=== PATIENT | male | born 1950 | race Caucasian/White ===

== ENCOUNTER 2018-01-04 10:06 | Emergency (ER) | payer MEDICARE ==
[~2018-01-04] VITALS: Ht 172.7 cm; Wt 109.1 kg
[2018-01-04 10:09] VITALS: Ht 172.7 cm; Wt 109.1 kg
[2018-01-04] MEDS ORDERED: LISINOPRIL10 MG PO (10:10)
[2018-01-04] MEDS ORDERED: UNITHROID75 MCG PO (10:10)
[2018-01-04 10:50] LABS: BASOPHILS 0.2 % (0-2); EOSINOPHILS 1.6 % (0-7); HEMATOCRIT 45.6 % (42.0-54.0); HEMOGLOBIN 16.1 g/dL (13.5-17.5); IMMATURE GRANULOCYTES 0.2 % (0-5); LYMPHOCYTES 18.1 % (15-50); MCH 31.7 pg (26.0-34.0); MCHC 35.3 g/dL (31.0-37.0); MCV 89.8 fL (80.0-100.0); MEAN PLATELET VOLUME 8.8 fL (7.4-10.4); MONOCYTES 6.4 % (2-11); NEUTROPHILS 73.5 % (40-80); PLATELET COUNT 210 10x3/uL (130-400); RBC 5.08 10x6/uL (4.20-6.10); RDW 13.1 % (11.5-14.5); WBC 5.1 10x3/uL (4.8-10.8)
[2018-01-04 11:13] LABS: ALBUMIN 4.4 g/dL (3.4-5.0); ALKALINE PHOSPHATASE 47 U/L (46-116); ALT (SGPT) 32 U/L (10-68); BILIRUBIN - TOTAL 1.08 mg/dL (0.2-1.3); CALC OSMOLALITY 274 mosm/kg (275-300); CALCIUM 9.4 mg/dL (8.5-10.1); CHLORIDE - SERUM 101 mmol/L (98-107); GLUCOSE 119 mg/dL (74-106); POTASSIUM - SERUM 4.1 mmol/L (3.5-5.1); PROTEIN - SERUM 7.5 g/dL (6.4-8.2); SODIUM 137 mmol/L (136-145); UREA NITROGEN 12 mg/dL (7-18); eGFR NON AFRICAN AMERICAN 79 mL/min (90-120)
[2018-01-04 11:21] LABS: THYROID STIMULATING HORMONE 0.65 uIU/mL (0.36-3.74); TROPONIN-I < 0.017 ng/mL (0.000-0.060)
[2018-01-04 12:03] VITALS: BP 111/70
== END 2018-01-04 12:03 | disposition home or self-care (01) ==
LOC: D.ER 10:06
PROVIDERS: Family Medicine
DX: F41.0 Panic disorder [episodic paroxysmal anxiety] (principal); E05.00 Thyrotoxicosis with diffuse goiter without thyrotoxic crisis or storm; I10 Essential (primary) hypertension; R51 Headache

== ENCOUNTER → 2018-08-16 07:38 | Outpatient (CLI) | payer MEDICARE, OTHER ==
[2018-01-04 10:09] VITALS: BMI 36.5
[~2018-08-16 07:38] MED LIST: LISINOPRIL10 MG PO; UNITHROID75 MCG PO
== END | disposition home or self-care (01) ==
LOC: D.US 08-15 08:00
DX: R10.13 Epigastric pain (principal)

== ENCOUNTER → 2019-03-07 06:55 | Outpatient (CLI) | payer MEDICARE, OTHER ==
[2018-01-04 10:09] VITALS: BMI 36.5
[2019-03-07 07:29] LABS: BILIRUBIN - DIRECT 0.15 mg/dL (0.00-0.30); BILIRUBIN - INDIRECT 0.51 mg/dL (0.00-1.00); BILIRUBIN - TOTAL 0.66 mg/dL (0.2-1.3); PROTEIN - SERUM 7.1 g/dL (6.4-8.2)
== END | disposition home or self-care (01) ==
LOC: D.US 06:55
PROVIDERS: ATTEND Internal Medicine Gastroenterology
DX: K76.0 Fatty (change of) liver, not elsewhere classified (principal)

== ENCOUNTER → 2020-09-11 11:32 | Outpatient (CLI) | payer MEDICARE, OTHER ==
[2018-01-04 10:09] VITALS: BMI 36.5
== END | disposition home or self-care (01) ==
LOC: D.US 11:30
PROVIDERS: ATTEND Family Medicine
DX: N45.1 Epididymitis (principal)